=== PATIENT | female | born 1995 | race American Indian/Alaskan Native ===

== ENCOUNTER 2018-04-25 08:38 | Emergency (ER) | payer MEDICAID ==
[2018-04-25] MEDS ORDERED: MOTRIN PO ONE (14:23)
[2018-04-25] MEDS ORDERED: KEFLEX PO ONE (14:23)
--- NOTE | 2018-04-25 14:23 | Emergency Department Report ---
HPI - General Chief Complaint: Earache Time Seen by Provider: 04/25/18 14:03 - HPI HPI: This is a 22-year-old female here report bilateral ear pain 1 week. Patient states that she feels like there is a sore at the front of her right ear. She does also complain in a sore throat. She denies any drooling or pain with swallowing. Denies any fever or chills. Denies any cough nasal congestion, headache or chest pain. No medication taken prior to coming to the hospital. Denies any trauma. Denies any drainage from ears. Immunizations up-to-date ED Past Medical Hx - Past Medical History Previous Medical History?: Yes Hx Psychiatric Treatment: Yes (anxiety, depression) - Surgical History Past Surgical History?: Yes Additional Surgical History: x 1 - Family History Family history: hypertension - Social History Smoking Status: Never Smoker Substance Use Type: None - Medications Home Medications: Home Medications Medication Instructions Recorded Confirmed Last Taken Type Ibuprofen [Motrin] 600 mg PO Q8H PRN #12 tablet 04/25/18 Unknown Rx Mupirocin [Bactroban 2%] 1 applic TP BID 7 Days #1 tube 04/25/18 Unknown Rx Neomy/Polymyx B/Hc (Otic) Soln 4 drops OTIC Q8H 7 Days #1 bottle 04/25/18 Unknown Rx [Cortisporin (Otic) Soln] cephALEXin [Keflex] 500 mg PO Q8HR 10 Days #30 cap 04/25/18 Unknown Rx ED Review of Systems ROS: Stated complaint: EAR INFECTION Other details as noted in HPI Constitutional: denies: chills, fever Eyes: denies: eye pain, eye discharge, vision change ENT: ear pain. denies: throat pain, dental pain, epistaxis, congestion Respiratory: denies: cough, shortness of breath, SOB with exertion, SOB at rest , stridor, wheezing Cardiovascular: denies: chest pain, palpitations, dyspnea on exertion, edema, syncope Musculoskeletal: denies: back pain, joint swelling, arthralgia, myalgia Skin: denies: rash, lesions Neurological: denies: headache Physical Exam - Physical Exam Vital Signs: Vital Signs 04/25/18 09:07 Temperature 99.1 F Pulse Rate 100 H Respiratory 16 Rate Blood Pressure 131/85 O2 Sat by Pulse 98 Oximetry General: This is a 22-year-old female well-nourished well-developed in no acute distress. Physical Exam: Head: Normocephalic atraumatic Ears:BIateral TM normal exam . Right EAC with erythema, right tragus is tenderness to palpate right, swelling without any drainage. No days scabbed, raised area, tender to palpate the entrance of right ear. No mastoid bone tenderness. Left EAC and TM normal exam Mouth: Moist, no pharyngeal erythema or exudate . Positive tonsillar enlargement without tonsillar erythema or exudate. UVULA midline and oral airways patent. No peritonsillar abscess Neck: Nontender to palpate, supple, normal range of motion. No adenopathy. No c- spine tenderness. Nose: Bilateral nasal mucosa normal exam. Maxillary and frontal sinuses non- tender to palpate. Eyes: Bilateral Sclerae and conjunctiva without injection. Bilateral pupils equal and reactive to light. Bilateral lids are normal. Normal accommodation.BEOMI Lungs: Clear to auscultate bilaterally, no rhonchi wheezes or rales. Normal work of breathing and no chest wall tenderness CV: S1, S2. Regular rate and rhythm negative murmur. Capillary refill is less than 3 seconds Extremity: No clubbing, cyanosis or edema. +2 pulses in all extremities and no neurovascular compromise Skin: Clean dry and intact, no rashes or lesions Psych: Normal mood and behavior ED Course Vital Signs 04/25/18 09:07 Temperature 99.1 F Pulse Rate 100 H Respiratory 16 Rate Blood Pressure 131/85 O2 Sat by Pulse 98 Oximetry - Reevaluation(s) Reevaluation #1: 04/25/18 15:50 500 mg by mouth and Motrin 800 mg when necessary emergency room. ED Medical Decision Making - Medical Decision Making This is a 22-year-old female here report ear pain and sore to right ear. Assessment/plan 1: Impetigo right external ear-A she is started on Keflex in the emergency room. 2: otitis externa right/otalgia right ear ear-Motrin milligrams by mouth and will be sent home on Motrin Diagnosis, treatment plan and follow-up explained to patient. I discussed after her diagnosis and that she will need to follow up with her primary care physician which she does not have one in 2-3 days. Patient discharged home, vital signs stable, pains controlled and discharged home with prescription for Keflex, Bactroban ointment and Corticosporin ear solution Critical care attestation.: If time is entered above; I have spent that time in minutes in the direct care of this critically ill patient, excluding procedure time. ED Disposition Clinical Impression: Impetigo Otitis externa Qualifiers: Otitis externa type: unspecified type Chronicity: acute Laterality: right Qualified Code(s): H60.501 - Unspecified acute noninfective otitis externa, right ear Disposition: DC- TO HOME OR SELFCARE Is pt being admited?: No Does the pt Need Aspirin: No Condition: Stable Instructions: Impetigo (ED), Otitis Externa (ED) Additional Instructions: Please use Bactroban as prescribed to affected ear right ear Use antibiotic ear drop as prescribed Follow-up with [facility] in 2-3 days as he do not have primary care physician Take Motrin for pain and Keflex antibiotic. If condition worsens, return to the emergency room Prescriptions: cephALEXin [Keflex] 500 mg PO Q8HR 10 Days #30 cap Ibuprofen [Motrin] 600 mg PO Q8H PRN #12 tablet PRN Reason: Pain Mupirocin [Bactroban 2%] 1 applic TP BID 7 Days #1 tube Neomy/Polymyx B/Hc (Otic) Soln [Cortisporin (Otic) Soln] 4 drops OTIC Q8H 7 Days #1 bottle Referrals: PRIMARY CARE, [Primary Care Provider] - 2-3 Days [facility] [Outside] - 2-3 Days Forms: Work/School Release Form(ED)
[2018-04-25 16:08] VITALS: BP 124/92
== END 2018-04-25 16:08 | disposition home or self-care (01) ==
LOC: ED 08:38
DX: L01.00 Impetigo, unspecified (principal); H62.41 Otitis externa in other diseases classified elsewhere, right ear; F41.9 Anxiety disorder, unspecified; F32.9 Major depressive disorder, single episode, unspecified
CPT/HCPCS: 99282